=== PATIENT | male | born 1940 | race Caucasian/White ===

== ENCOUNTER 2017-08-07 07:12 | Inpatient (IN) | payer OTHER ==
[2017-08-07] MEDS ORDERED: SODIUM CHLORIDE 1,000 ML IV ONE (08:39)
[2017-08-07] MEDS ORDERED: morphine CARPU-JECT 4 MG/1 ML DISP.SYRIN IVPUSH ONE (08:39)
[2017-08-07] MEDS ORDERED: ONDANSETRON 4 MG/2 ML VIAL IVPUSH ONE ×2 (08:39→11:11)
[2017-08-07] MEDS ORDERED: ONDANSETRON 4 MG/2 ML VIAL ONE ×2 (08:57→11:12)
[2017-08-07] MEDS ORDERED: MORPHINE SULFATE 10 MG/1 ML *VIAL ONE (08:57)
[2017-08-07 09:10] LABS: BASO % 0.3 % (0-2.0); EOS % 0.2 % (0-4.5); HEMATOCRIT 43.2 % (35.4-49); HEMOGLOBIN 14.5 GM/dL (11.7-16.9); LYMPH % 12.1 % (8-40); MCH 30.6 pg (25.7-33.7); MCHC 33.6 g/dl (32.0-35.9); MEAN CELL VOLUME 91.1 fl (80-96); MEAN PLT VOLUME 7.3 fl (7.5-11.1); MONO % 6.1 % (3.8-10.2); NEUT % 81.3 % (42.8-82.8); PLATELET COUNT 315 K/MM3 (134-434); RBC 4.74 M/mm3 (4.00-5.60); RDW 13.7 % (11.9-15.9); WHITE BLOOD COUNT 16.1 K/mm3 (4.0-10.0)
[2017-08-07 09:24] LABS: INR 1.37 (0.82-1.09); PROTHROMBIN TIME (PATIENT) 15.5 SEC (9.98-11.88)
[2017-08-07 09:32] LABS: ALBUMIN 1.8 g/dl (3.4-5.0); ANION GAP 12 (8-16); BILIRUBIN,DIRECT 0.7 mg/dL (0.0-0.2); BILIRUBIN,TOTAL 1.1 mg/dL (0.2-1.0); BLOOD UREA NITROGEN 31 mg/dL (7-18); CALCIUM 8.4 mg/dL (8.5-10.1); CHLORIDE 103 mmol/L (98-107); CO2 28 mmol/L (21-32); CREATININE 1.4 mg/dL (0.7-1.3); GLUCOSE,RANDOM 129 mg/dL (74-106); LIPASE 198 U/L (73-393); MAGNESIUM 2.1 mg/dL (1.8-2.4); POTASSIUM 4.4 mmol/L (3.5-5.1); SGOT/AST 87 U/L (15-37); SGPT/ALT 59 U/L (12-78); SODIUM 143 mmol/L (136-145); TOT PROT 8.1 g/dl (6.4-8.2)
[2017-08-07 09:33] LABS: ALK PHOS 235 U/L (45-117)
--- NOTE | 2017-08-07 10:33 | PDOC ---
History of Present Illness <Robinson Nick - Last Filed: 08/07/17 12:04> - General History Source: Patient Exam Limitations: No Limitations - History of Present Illness Initial Comments: 08/07/17 10:33 The patient is a 77 year old male, with no known significant past medical history, who presents to the emergency department with abdominal pain for approximately 5 days. The patient reports his pain was initially localized to the left upper and mid abdomen, and has since become diffuse. He describes his pain as a dull/intermittent ache, and rates it a 9.5/10. Patient reports his symptoms typically come for an hour and resolve for approximately 30 minutes, however over the past 2 days his symptoms have been coming on more frequently. He endorses one episode of dark vomiting 4 days ago. He reports he has not had a bowel movement in 3 days. He denies any associated nausea, diarrhea, melena, or hematochezia. He endorses decreased appetite, and chills, but denies any recent fever, cough, headache, or dizziness. He denies any dysuria, hematuria, frequency, or urgency. He denies any chest pain, shortness of breath, diaphoresis, or palpitations. He denies any recent travel or sick contacts. He denies any abdominal surgeries. Allergies: NKDA Past Surgical History: None reported Social History: Non smoker. No ETOH or recreational drug use. <Vivi Babb - Last Filed: 08/07/17 12:39> - General Chief Complaint: Pain, Acute Stated Complaint: ABDOMINAL PAIN Time Seen by Provider: 08/07/17 07:28 Past History - Past Medical History COPD: No - Suicide/Smoking/Psychosocial Hx Smoking History: Former smoker Have you smoked in the past 12 months: No Information on smoking cessation initiated: No Hx Alcohol Use: No Drug/Substance Use Hx: No Substance Use Type: None <Robinson Nick - Last Filed: 08/07/17 12:04> <Vivi Babb - Last Filed: 08/07/17 12:39> - Past Medical History Allergies/Adverse Reactions: Allergies Allergy/AdvReac Type Severity Reaction Status Date / Time No Known Allergies Allergy Verified 08/07/17 07:28 Home Medications: Ambulatory Orders NK [No Known Home Medication] 08/07/17 Review of Systems - Review of Systems Constitutional: Yes: Chills, Night Sweats. No: Fever Respiratory: No: Cough, Shortness of Breath Cardiac (ROS): No: Chest Pain ABD/GI: Yes: See HPI, Constipated, Nausea, Vomiting : No: Dysuria All Other Systems: Reviewed and Negative <Robinson Nick - Last Filed: 08/07/17 12:04> *Physical Exam - Vital Signs Last Vital Signs Temp Pulse Resp BP Pulse Ox 98.4 F 86 16 146/83 96 08/07/17 07:19 08/07/17 08:49 08/07/17 08:49 08/07/17 08:49 08/07/17 08:49 <Robinson Nick - Last Filed: 08/07/17 12:04> - Vital Signs Last Vital Signs Temp Pulse Resp BP Pulse Ox 98.4 F 86 16 146/83 96 08/07/17 07:19 08/07/17 08:49 08/07/17 08:49 08/07/17 08:49 08/07/17 08:49 - Physical Exam Comments: 08/07/17 10:34 GENERAL: The patient is awake, alert, and fully oriented, in no acute distress. Obese. HEAD: Normal with no signs of trauma. EYES: Pupils equal, round and reactive to light, extraocular movements intact, sclera anicteric, conjunctiva clear with no pallor. ENT: Dry mucous membranes. Ears normal, nares patent, oropharynx clear without exudates. NECK: Normal range of motion, supple without lymphadenopathy, JVD, or masses. LUNGS: Breath sounds equal, clear to auscultation bilaterally. No wheeze/ crackles. HEART: Regular rate and rhythm, normal S1 and S2 without murmur or rub. ABDOMEN: Tenderness to the left mid and lower quadrant, with some guarding but no rebound. Soft/nondistended. BS wnl. No palpable masses. No hepatosplenomegaly. EXTREMITIES: Normal range of motion, no edema. No clubbing or cyanosis. No cords, erythema, or tenderness. NEUROLOGICAL: Cranial nerves II through XII grossly intact. Normal speech, normal gait. PSYCH: Normal mood, normal affect. SKIN: Warm, Dry, normal turgor, no rashes or lesions noted. <Babb,Giomilsy - Last Filed: 08/07/17 12:39> Heart Score/ECG Review #1 ECG reviewed & interpreted by me at: 06:25 General ECG Interpretation: Sinus Rhythm (arrythmia and PAC), Normal Rate (96), Normal Intervals (qtc 515, QRS 138), No acute ischemic changes (LVH, TWI I/AVL) Compared to previous ECG there are: Previous ECG unavail <Robinson Nick - Last Filed: 08/07/17 12:04> ED Treatment Course - LABORATORY CBC & Chemistry Diagram: 08/07/17 08:50 08/07/17 08:50 - ADDITIONAL ORDERS Additional order review: Laboratory Results 08/07/17 08/07/17 08/07/17 08:50 08:50 08:49 PT with INR 15.50 H INR 1.37 H Sodium 143 Potassium 4.4 Chloride 103 Carbon Dioxide 28 Anion Gap 12 BUN 31 H Creatinine 1.4 H Creat Clearance w eGFR 49.41 POC Glucometer Random Glucose 129 H Lactic Acid Calcium 8.4 L Magnesium 2.1 Total Bilirubin 1.1 H Direct Bilirubin 0.7 H AST 87 H ALT 59 Alkaline Phosphatase 235 H Creatine Kinase 19 L Troponin I < 0.02 Total Protein 8.1 Albumin 1.8 L Lipase 198 Blood Type O POSITIVE Antibody Screen Negative 08/07/17 08/07/17 08:49 07:47 PT with INR INR Sodium Potassium Chloride Carbon Dioxide Anion Gap BUN Creatinine Creat Clearance w eGFR POC Glucometer 158.74182 Random Glucose Lactic Acid 1.3 Calcium Magnesium Total Bilirubin Direct Bilirubin AST ALT Alkaline Phosphatase Creatine Kinase Troponin I Total Protein Albumin Lipase Blood Type Antibody Screen 08/07/17 08/07/17 08:50 07:47 RBC 4.74 MCV 91.1 MCHC 33.6 RDW 13.7 MPV 7.3 L Neutrophils % 81.3 Lymphocytes % 12.1 Monocytes % 6.1 Eosinophils % 0.2 Basophils % 0.3 POC Glucometer 158.55153 - RADIOLOGY Radiology Studies Ordered: Category Date Time Status ABDOMEN & PELVIS CT W/O CONTR [CT] Stat CT Scan 08/07/17 10:26 Ordered ABDOMEN-KUB FLAT PLATE [RAD] Stat Radiology 08/07/17 08:42 Ordered CHEST X-RAY PORTABLE* [RAD] Stat Radiology 08/07/17 08:42 Completed - Medications Given in the ED: ED Medications Discontinued Medications Generic Name Dose Route Start Last Admin Trade Name Rina PRN Reason Stop Dose Admin Sodium Chloride 1,000 mls @ 1,000 mls/hr 08/07/17 08:39 08/07/17 09:02 Normal Saline - IV 08/07/17 09:38 1,000 mls/hr ONCE ONE Administration Morphine Sulfate 4 mg 08/07/17 08:39 08/07/17 09:02 Morphine Injection - IVPUSH 08/07/17 08:40 4 mg ONCE ONE Administration Ondansetron HCl 4 mg 08/07/17 08:39 08/07/17 09:02 Zofran Injection IVPUSH 08/07/17 08:40 4 mg ONCE ONE Administration <Robinson Nick - Last Filed: 08/07/17 12:04> - LABORATORY CBC & Chemistry Diagram: 08/07/17 08:50 08/07/17 08:50 - ADDITIONAL ORDERS Additional order review: Laboratory Results 08/07/17 08/07/17 08/07/17 08:50 08:50 08:49 PT with INR 15.50 H INR 1.37 H Sodium 143 Potassium 4.4 Chloride 103 Carbon Dioxide 28 Anion Gap 12 BUN 31 H Creatinine 1.4 H Creat Clearance w eGFR 49.41 POC Glucometer Random Glucose 129 H Lactic Acid Calcium 8.4 L Magnesium 2.1 Total Bilirubin 1.1 H Direct Bilirubin 0.7 H AST 87 H ALT 59 Alkaline Phosphatase 235 H Creatine Kinase 19 L Troponin I < 0.02 Total Protein 8.1 Albumin 1.8 L Lipase 198 Blood Type O POSITIVE Antibody Screen Negative 08/07/17 08/07/17 08:49 07:47 PT with INR INR Sodium Potassium Chloride Carbon Dioxide Anion Gap BUN Creatinine Creat Clearance w eGFR POC Glucometer 158.44696 Random Glucose Lactic Acid 1.3 Calcium Magnesium Total Bilirubin Direct Bilirubin AST ALT Alkaline Phosphatase Creatine Kinase Troponin I Total Protein Albumin Lipase Blood Type Antibody Screen 08/07/17 08/07/17 08:50 07:47 RBC 4.74 MCV 91.1 MCHC 33.6 RDW 13.7 MPV 7.3 L Neutrophils % 81.3 Lymphocytes % 12.1 Monocytes % 6.1 Eosinophils % 0.2 Basophils % 0.3 POC Glucometer 158.08325 - Medications Given in the ED: ED Medications Discontinued Medications Generic Name Dose Route Start Last Admin Trade Name Rina PRN Reason Stop Dose Admin Sodium Chloride 1,000 mls @ 1,000 mls/hr 08/07/17 08:39 08/07/17 09:02 Normal Saline - IV 08/07/17 09:38 1,000 mls/hr ONCE ONE Administration Morphine Sulfate 4 mg 08/07/17 08:39 08/07/17 09:02 Morphine Injection - IVPUSH 08/07/17 08:40 4 mg ONCE ONE Administration Ondansetron HCl 4 mg 08/07/17 08:39 08/07/17 09:02 Zofran Injection IVPUSH 08/07/17 08:40 4 mg ONCE ONE Administration <Vivi Babb - Last Filed: 08/07/17 12:39> Medical Decision Making - Medical Decision Making 08/07/17 10:30 A portion of this note was documented by scribe services under my direction. I have reviewed the details of the note, within reason, and agree with the documentation with the following case summary and management plan written by me. 77-year-old male who does not have primary care follow-up, no surgical or medical history presents with 5 days of progressive left-sided abdominal pain associated with vomiting on day 2, constipation for 3 days. No blood per rectum , chills night sweats, presents for evaluation. Afebrile. Slight tachycardia Dry mucosa, no jaundice or pallor Obese, abdomen is soft and nondistended. Tender with some guarding in the left mid and left lower quadrant 77-year-old male with progressive abdominal pain for 5 days, subjective fevers and chills with localizing findings in the left lower quadrant. Presentation could be most consistent with diverticulitis/colitis, rule out obstruction/ ileus. Less likely etiology or vascular etiology. Labs, urinalysis Pain control, nausea control IV fluids CT of the abdomen and pelvis Reassess 08/07/17 10:32 Labs notable for white count of 16, creatinine 1.4, normal LFTs, lipase, troponin. CAT scan without contrast, pain improved after morphine. 08/07/17 11:37 CTAP notable for large cystic structure in L love of liver concerning for neoplasm, compression of stomach but no obstruction or diverticulitis. Pt given 2nd dose of zofran and feels better. Aware of findings, agrees with admission given pain/inability to tolerate PO. Dr. Josue, health services information specialist, contacted. 08/07/17 12:04 Dr. Josue accepts for inpatient med/surg. <Robinson Nick - Last Filed: 08/07/17 12:04> - Medical Decision Making 08/07/17 11:33 First call placed to Dr. Josue at 11:28. Awaiting call back. Second call placed to Dr. Josue at 11:57. Awaiting call back. Case discussed with Dr. Josue at 12:03. <Vivi Babb - Last Filed: 08/07/17 12:39> *DC/Admit/Observation/Transfer - Discharge Dispostion Admit: Yes <Robinson Nick - Last Filed: 08/07/17 12:04> - Attestations Scribe Attestion: 08/07/17 10:36 Documentation prepared by Vivi Babb, acting as medical technicians for Robinson Nick MD. <Vivi Babb - Last Filed: 08/07/17 12:39> Diagnosis at time of Disposition: Abdominal pain, left lower quadrant, Liver mass - Discharge Dispostion Condition at time of disposition: Fair
[2017-08-07 15:32] VITALS: BMI 35.4
--- NOTE | 2017-08-07 16:00 | EKG ---
Test Reason : Blood Pressure : / mmHG Vent. Rate : 096 BPM Atrial Rate : 096 BPM P-R Int : 168 ms QRS Dur : 138 ms QT Int : 408 ms P-R-T Axes : 021 -59 102 degrees QTc Int : 515 ms SINUS RHYTHM WITH MARKED SINUS ARRHYTHMIA LEFT AXIS DEVIATION LEFT VENTRICULAR HYPERTROPHY WITH QRS WIDENING AND REPOLARIZATION ABNORMALITY ABNORMAL ECG NO PREVIOUS ECGS AVAILABLE Confirmed by LAKEISHA CUTLER MD ([id number]) on 08/07/2017 4:00:21 PM Referred By: Confirmed By:LAKEISHA CUTLER MD
[2017-08-07] MEDS ORDERED: HYDROmorphone HCL CARPU-JECT 1 MG/1 ML DISP.SYRIN IVPB PRN (18:14)
--- NOTE | 2017-08-07 18:14 | HP ---
Admitting History and Physical - Primary Care Physician PCP: Kristina Josue - Admission Chief Complaint: abdominal pain History of Present Illness: 77 year old male, with no known significant past medical history, who presents to the emergency department with abdominal pain for approximately 5 days. The patient reports his pain was initially localized to the left upper and mid abdomen, and has since become diffuse. He describes his pain as a dull/ intermittent ache, and rates it a 9.5/10. Patient reports his symptoms typically come for an hour and resolve for approximately 30 minutes, however over the past 2 days his symptoms have been coming on more frequently. He endorses one episode of dark vomiting 4 days ago. He reports he has not had a bowel movement in 3 days. He denies any associated nausea, diarrhea, melena, or hematochezia. He endorses decreased appetite, and chills, but denies any recent fever, cough, headache, or dizziness. He denies any dysuria, hematuria, frequency, or urgency. He denies any chest pain, shortness of breath, diaphoresis, or palpitations. He denies any recent travel or sick contacts. He denies any abdominal surgeries. - Smoking History Smoking history: Former smoker Have you smoked in the past 12 months: No - Alcohol/Substance Use Hx Alcohol Use: No Home Medications - Allergies Allergies/Adverse Reactions: Allergies Allergy/AdvReac Type Severity Reaction Status Date / Time No Known Allergies Allergy Verified 08/07/17 07:28 - Home Medications Home Medications: Ambulatory Orders NK [No Known Home Medication] 08/07/17 Physical Examination Vital Signs: Vital Signs Temperature 98 F 08/07/17 16:26 Pulse Rate 94 H 08/07/17 16:26 Respiratory Rate 18 08/07/17 16:26 Blood Pressure 138/92 08/07/17 16:26 O2 Sat by Pulse Oximetry (%) 95 08/07/17 13:04 Constitutional: Yes: No Distress HENT: Yes: Atraumatic Neck: Yes: Supple Cardiovascular: Yes: Regular Rate and Rhythm Respiratory: Yes: CTA Bilaterally Gastrointestinal: Yes: Normal Bowel Sounds, Tenderness (mild ruq) Extremities: Yes: WNL Edema: No Neurological: Yes: Alert, Oriented Labs: CBC, BMP 08/07/17 08:50 08/07/17 08:50 Problem List - Problems (1) Abdominal pain, left lower quadrant Assessment/Plan: prn pain meds npo ct scan abd /pelvis gi and surgery consult Code(s): R10.32 - LEFT LOWER QUADRANT PAIN (2) Liver mass Assessment/Plan: surgery is involved also oncology consult Code(s): R16.0 - HEPATOMEGALY, NOT ELSEWHERE CLASSIFIED (3) Mass of left lobe of liver Code(s): R16.0 - HEPATOMEGALY, NOT ELSEWHERE CLASSIFIED Assessment/Plan Laboratory Tests 08/07/17 08/07/17 08/07/17 07:47 08:49 08:49 WBC RBC Hgb Hct MCV MCH MCHC RDW Plt Count MPV Neutrophils % Lymphocytes % Monocytes % Eosinophils % Basophils % PT with INR INR Sodium Potassium Chloride Carbon Dioxide Anion Gap BUN Creatinine Creat Clearance w eGFR POC Glucometer 158.09303 Random Glucose Lactic Acid 1.3 Calcium Magnesium Total Bilirubin Direct Bilirubin AST ALT Alkaline Phosphatase Creatine Kinase Troponin I Total Protein Albumin Lipase Blood Type O POSITIVE Antibody Screen Negative 08/07/17 08/07/17 08/07/17 08:50 08:50 08:50 WBC 16.1 H RBC 4.74 Hgb 14.5 Hct 43.2 MCV 91.1 MCH 30.6 MCHC 33.6 RDW 13.7 Plt Count 315 MPV 7.3 L Neutrophils % 81.3 Lymphocytes % 12.1 Monocytes % 6.1 Eosinophils % 0.2 Basophils % 0.3 PT with INR 15.50 H INR 1.37 H Sodium 143 Potassium 4.4 Chloride 103 Carbon Dioxide 28 Anion Gap 12 BUN 31 H Creatinine 1.4 H Creat Clearance w eGFR 49.41 POC Glucometer Random Glucose 129 H Lactic Acid Calcium 8.4 L Magnesium 2.1 Total Bilirubin 1.1 H Direct Bilirubin 0.7 H AST 87 H ALT 59 Alkaline Phosphatase 235 H Creatine Kinase 19 L Troponin I < 0.02 Total Protein 8.1 Albumin 1.8 L Lipase 198 Blood Type Antibody Screen Active Medications Generic Name Dose Route Start Last Admin Trade Name Freq PRN Reason Stop Dose Admin Heparin Sodium (Porcine) 5,000 unit 08/07/17 22:00 08/08/17 09:35 Heparin - SQ 5,000 unit BID ROSITA Administration Hydromorphone HCl 1 mg 08/07/17 18:14 Dilaudid Injection - IVPB Q3H PRN PAIN Sodium Chloride 1,000 mls @ 100 mls/hr 08/07/17 18:15 08/08/17 17:59 Normal Saline - IV Not Given ASDIR ROSITA
[2017-08-07] MEDS: SODIUM CHLORIDE 1,000 ML IV SCH (18:46)
[2017-08-07] MEDS: HEPARIN NA (PORCINE) 5,000 UNITS/ML 1ML VIAL SQ SCH (21:20)
--- NOTE | 2017-08-07 22:54 | CONSULT ---
Consult - text type - Consultation Consultation Note: The patient is a 77 year old male, with no known significant past medical history, who presents to the emergency department with abdominal pain for approximately 5 days. The patient reports his pain was initially localized to the left upper and mid abdomen, and has since become diffuse. He describes his pain as a dull/intermittent ache, and rates it a 9.5/10. Patient reports his symptoms typically come for an hour and resolve for approximately 30 minutes, however over the past 2 days his symptoms have been coming on more frequently. He endorses one episode of dark vomiting 4 days ago. He reports he has not had a bowel movement in 3 days. He denies any associated nausea, diarrhea, melena, or hematochezia. He endorses decreased appetite, and chills, but denies any recent fever, cough, headache, or dizziness. He denies any dysuria, hematuria, frequency, or urgency. He denies any chest pain, shortness of breath, diaphoresis, or palpitations. He denies any recent travel or sick contacts. He denies any abdominal surgeries. Allergies: NKDA Past Surgical History: None reported Social History: Non smoker. No ETOH or recreational drug use. family h/o mother had breast cancer in her 50s father had lung cancer - Suicide/Smoking/Psychosocial Hx Smoking History: Former smoker Allergies/Adverse Reactions: Allergies Allergy/AdvReac Type Severity Reaction Status Date / Time No Known Allergies Allergy Verified 08/07/17 07:28 Home Medications: Ambulatory Orders NK [No Known Home Medication] 08/07/17 *Physical Exam - Vital Signs Last Vital Signs Temp Pulse Resp BP Pulse Ox 98.4 F 86 16 146/83 96 08/07/17 07:19 08/07/17 08:49 08/07/17 08:49 08/07/17 08:49 08/07/17 08:49 GENERAL: The patient is awake, alert, and fully oriented, in no acute distress. Obese. HEAD: Normal with no signs of trauma.. NECK: Normal range of motion, supple without lymphadenopathy, JVD, or masses. LUNGS: Breath sounds equal, clear to auscultation bilaterally. No wheeze/ crackles. HEART: Regular rate and rhythm, normal S1 and S2 without murmur or rub. ABDOMEN: Tenderness to the left mid and lower quadrant, with some guarding but no rebound. Soft/nondistended. BS wnl. No palpable masses. No hepatosplenomegaly. EXTREMITIES: Normal range of motion, no edema. No clubbing or cyanosis. No cords, erythema, or tenderness. Abnormal Lab Results 08/07/17 08/07/17 08/07/17 08:50 08:50 08:50 WBC 16.1 H MPV 7.3 L PT with INR 15.50 H INR 1.37 H BUN 31 H Creatinine 1.4 H Random Glucose 129 H Calcium 8.4 L Total Bilirubin 1.1 H Direct Bilirubin 0.7 H AST 87 H Alkaline Phosphatase 235 H Creatine Kinase 19 L Albumin 1.8 L a/p 77-year-old male who does not have primary care follow-up, no surgical or medical history presents with 5 days of progressive left-sided abdominal pain associated with vomiting on day 2, constipation for 3 days. No bleedeing per rectum, chills night sweats, Labs notable for white count of 16, creatinine 1.4, normal LFTs, lipase, troponin. CTAP notable for large cystic structure 21x 15cm in L lobe of liver concerning for neoplasm, compression of stomach but no obstruction or diverticulitis' Patient never had colonoscopy and denies h/o liver disease, alcohol abuse will checl Pt/Ptt/fibrnogen ast doseof aleve 3 days back will request gi consult--mri/mrcp per hepatic protocol ---? cr 1.4 check tunor markers--afp, cea, ca 19.9 willneed biopsy via ir based on above w/u
[2017-08-08] MEDS: SODIUM CHLORIDE 1,000 ML IV SCH ×3 (05:15→18:51)
--- NOTE | 2017-08-08 09:20 | CON.GI ---
Consult Consult Specialty:: GI Reason for Consultation:: Abnormal CT of the abdomen - History of Present Illness History of Present Illness: chart reviewed. As per initial intake: no known significant past medical history, who presents to the emergency department with abdominal pain for approximately 5 days. The patient reports his pain was initially localized to the left upper and mid abdomen, and has since become diffuse. He describes his pain as a dull/ intermittent ache, and rates it a 9.5/10. Patient reports his symptoms typically come for an hour and resolve for approximately 30 minutes, however over the past 2 days his symptoms have been coming on more frequently. He endorses one episode of dark vomiting 4 days ago. He reports he has not had a bowel movement in 3 days. He denies any associated nausea, diarrhea, melena, or hematochezia. He endorses decreased appetite, and chills, but denies any recent fever, cough, headache, or dizziness. He denies any dysuria, hematuria, frequency, or urgency. He denies any chest pain, shortness of breath, diaphoresis, or palpitations. He denies any recent travel or sick contacts. He denies any abdominal surgeries. At the time of this encountered, the patient appears comfortable. Not in distress. Reports no ongoing GI symptoms. Denies chronic alcohol use, history of viral hepatitis, exposures to chemicals, family history of viral hepatitis, autoimmune, genetic, or metabolic liver problems. Never been told he had liver problems in the past. Reports subjective weight loss. Denies jaundice, low-grade fever, chills, altered bowel habits, melena, hematochezia, hematemesis. On admission, he was found to have large, complex liver mass On CT abdomen and pelvis without contrast. Hematology oncology was consulted. Blood work ordered. - History Source History Provided By: Patient, Medical Record - Alcohol/Substance Use Hx Alcohol Use: No - Smoking History Smoking history: Former smoker Have you smoked in the past 12 months: No Home Medications - Allergies Allergies/Adverse Reactions: Allergies Allergy/AdvReac Type Severity Reaction Status Date / Time No Known Allergies Allergy Verified 08/07/17 07:28 - Home Medications Home Medications: Ambulatory Orders NK [No Known Home Medication] 08/07/17 Family Disease History - Family Disease History Family History: Unremarkable Review of Systems Findings/Remarks: Please refer to HPI and H&P. Physical Exam-GI Vital Signs: Vital Signs Temperature 98.7 F 08/08/17 05:38 Pulse Rate 109 H 08/08/17 05:38 Respiratory Rate 20 08/08/17 05:38 Blood Pressure 128/79 08/08/17 05:38 O2 Sat by Pulse Oximetry (%) 96 08/07/17 22:00 Constitutional: Yes: Well Nourished, No Distress, Calm Eyes: Yes: Conjunctiva Clear HENT: Yes: Atraumatic Neck: Yes: Supple Cardiovascular: Yes: Regular Rate and Rhythm Respiratory: Yes: Regular Neurological: Yes: Alert, Oriented Labs: CBC, BMP 08/07/17 08:50 08/07/17 08:50 INR, PTT INR 1.37 (0.82-1.09) H 08/07/17 08:50 Laboratory Tests 08/07/17 08/07/17 08/07/17 07:47 08:49 08:49 WBC RBC Hgb Hct MCV MCH MCHC RDW Plt Count MPV Neutrophils % Lymphocytes % Monocytes % Eosinophils % Basophils % PT with INR INR Sodium Potassium Chloride Carbon Dioxide Anion Gap BUN Creatinine Creat Clearance w eGFR POC Glucometer 158.06836 Random Glucose Lactic Acid 1.3 Calcium Magnesium Total Bilirubin Direct Bilirubin AST ALT Alkaline Phosphatase Creatine Kinase Troponin I Total Protein Albumin Lipase Blood Type O POSITIVE Antibody Screen Negative 08/07/17 08/07/17 08/07/17 08:50 08:50 08:50 WBC 16.1 H RBC 4.74 Hgb 14.5 Hct 43.2 MCV 91.1 MCH 30.6 MCHC 33.6 RDW 13.7 Plt Count 315 MPV 7.3 L Neutrophils % 81.3 Lymphocytes % 12.1 Monocytes % 6.1 Eosinophils % 0.2 Basophils % 0.3 PT with INR 15.50 H INR 1.37 H Sodium 143 Potassium 4.4 Chloride 103 Carbon Dioxide 28 Anion Gap 12 BUN 31 H Creatinine 1.4 H Creat Clearance w eGFR 49.41 POC Glucometer Random Glucose 129 H Lactic Acid Calcium 8.4 L Magnesium 2.1 Total Bilirubin 1.1 H Direct Bilirubin 0.7 H AST 87 H ALT 59 Alkaline Phosphatase 235 H Creatine Kinase 19 L Troponin I < 0.02 Total Protein 8.1 Albumin 1.8 L Lipase 198 Blood Type Antibody Screen Imaging - Results Cat Scan: Report Reviewed ( CT abdomen and pelvis without contrast) Problem List - Problems (1) Abdominal pain, left lower quadrant Code(s): R10.32 - LEFT LOWER QUADRANT PAIN (2) Liver mass Code(s): R16.0 - HEPATOMEGALY, NOT ELSEWHERE CLASSIFIED Assessment/Plan Rule out primary, or metastatic liver disease. Agree with alpha-fetoprotein, CA-19-9, CEA. CT abdomen, pelvis, chest with IV/po contrast, or MR with contrast may be helpful in assessing the liver lesion and the extent, If renal function allow after adequate hydration. alternatively, if the above blood work results are inconclusive, a liver biopsy can be undertaken. EGD and colonoscopy to assess for gastric and colon primary ay be warranted depending on the outcome the above studies. will follow.
[2017-08-08] MEDS: HEPARIN NA (PORCINE) 5,000 UNITS/ML 1ML VIAL SQ SCH ×2 (09:35→22:08)
--- NOTE | 2017-08-08 10:59 | CONSULT ---
Consult Consult Specialty:: Surgery Referred by:: Dr. Josue Reason for Consultation:: Abdominal mass. - History of Present Illness Chief Complaint: 77 year old man is admitted with c/o inability to eat , loss of appetite for the past 5 weeks. He came to the Er because he had abdominal pain , across his midabdomen. He denies any rectal bleeding, change in bowel habits. - History Source History Provided By: Patient (He denies any medical or surgical history. He does not know of any primary doctor, and refers to his .), Family Member - Past Surgical History Past Surgical History: Yes: None - Alcohol/Substance Use Hx Alcohol Use: No - Smoking History Smoking history: Former smoker Have you smoked in the past 12 months: No Home Medications - Allergies Allergies/Adverse Reactions: Allergies Allergy/AdvReac Type Severity Reaction Status Date / Time No Known Allergies Allergy Verified 08/07/17 07:28 - Home Medications Home Medications: Ambulatory Orders NK [No Known Home Medication] 08/07/17 Review of Systems - Review of Systems Constitutional: reports: No Symptoms, Unintentional Wgt. Loss Eyes: reports: No Symptoms HENT: reports: No Symptoms Neck: reports: No Symptoms Cardiovascular: reports: No Symptoms Respiratory: reports: No Symptoms Gastrointestinal: reports: No Symptoms, Abdominal Pain Genitourinary: reports: No Symptoms Breasts: reports: No Symptoms Reported Musculoskeletal: reports: No Symptoms Physical Exam Vital Signs: Vital Signs Temperature 98.7 F 08/08/17 05:38 Pulse Rate 109 H 08/08/17 05:38 Respiratory Rate 20 08/08/17 05:38 Blood Pressure 128/79 08/08/17 05:38 O2 Sat by Pulse Oximetry (%) 96 08/07/17 22:00 Labs: CBC, BMP 08/07/17 08:50 08/07/17 08:50 Imaging - Results Cat Scan: Report Reviewed, Image Reviewed (Lobulated mass in left lobe of liverv , with ? compression of vstomach. This was done without contrast.) Problem List - Problems (1) Mass of left lobe of liver Code(s): R16.0 - HEPATOMEGALY, NOT ELSEWHERE CLASSIFIED (2) Abdominal pain Code(s): R10.9 - UNSPECIFIED ABDOMINAL PAIN Qualifiers: Abdominal location: left lower quadrant Qualified Code(s): R10.32 - Left lower quadrant pain (3) Abdominal pain, left lower quadrant Code(s): R10.32 - LEFT LOWER QUADRANT PAIN (4) Loss of appetite Code(s): R63.0 - ANOREXIA (5) Dysphagia Code(s): R13.10 - DYSPHAGIA, UNSPECIFIED Qualifiers: Dysphagia type: unspecified Qualified Code(s): R13.10 - Dysphagia, unspecified Assessment/Plan ? Liver mass , ? primary , ? secondary. Dysphagia, with loss of appetite, consider upper and lower endoscopy, Ct scan of abdomen and pelvis with oral and IV contrast, I have discussed with radiologist. Tumor markers, CEA. Will follow.
[2017-08-08 12:27] LABS: ANION GAP 10 (8-16); BLOOD UREA NITROGEN 27 mg/dL (7-18); CALCIUM 7.6 mg/dL (8.5-10.1); CHLORIDE 109 mmol/L (98-107); CO2 25 mmol/L (21-32); CREATININE 1.2 mg/dL (0.7-1.3); GLUCOSE,RANDOM 96 mg/dL (74-106); POTASSIUM 4.2 mmol/L (3.5-5.1); SODIUM 144 mmol/L (136-145)
--- NOTE | 2017-08-08 13:37 | PN ---
Progress Note (short form) - Note Progress Note: pt seen and examined family at bedside. all consult notes reviewed witnessed pt vomiting the PO contrast that he is trying to drink. ROS is limited due to pts condition at the time of the visit. O/E: Last Vital Signs Temp Pulse Resp BP Pulse Ox 98.2 F 98 H 20 130/77 96 08/08/17 08:00 08/08/17 08:00 08/08/17 08:00 08/08/17 08:00 08/08/17 08:00 CBC, BMP 08/07/17 08:50 08/08/17 11:45 Current Medications Generic Name Dose Route Start Last Admin Trade Name Freq PRN Reason Stop Dose Admin Heparin Sodium (Porcine) 5,000 unit 08/07/17 22:00 08/08/17 09:35 Heparin - SQ 5,000 unit BID ROSITA Administration Hydromorphone HCl 1 mg 08/07/17 18:14 Dilaudid Injection - IVPB Q3H PRN PAIN Sodium Chloride 1,000 mls @ 100 mls/hr 08/07/17 18:15 08/08/17 05:15 Normal Saline - IV 100 mls/hr ASDIR ROSITA Administration will f.u on tumor markers/imaging studies for the CT non-con image finding of a liver mass. Could not tolerate PO contrast, changed to IV contrast only eventually will need a pathological diagnosis reviewed GI/Surgery recs
--- NOTE | 2017-08-08 18:08 | PN ---
Progress Note, Physician - Current Medication List Current Medications: Active Medications Heparin Sodium (Porcine) (Heparin -) 5,000 unit SQ BID [facility] Last Admin: 08/08/17 09:35 Dose: 5,000 unit Hydromorphone HCl (Dilaudid Injection -) 1 mg IVPB Q3H PRN PRN Reason: PAIN Sodium Chloride (Normal Saline -) 1,000 mls @ 100 mls/hr IV ASDIR [facility] Last Admin: 08/08/17 17:59 Dose: Not Given - Objective Vital Signs: Vital Signs Temperature 98.2 F 08/08/17 08:00 Pulse Rate 98 H 08/08/17 08:00 Respiratory Rate 20 08/08/17 08:00 Blood Pressure 130/77 08/08/17 08:00 O2 Sat by Pulse Oximetry (%) 96 08/08/17 08:00 Constitutional: Yes: No Distress HENT: Yes: Atraumatic Neck: Yes: Supple Cardiovascular: Yes: Regular Rate and Rhythm Respiratory: Yes: CTA Bilaterally Gastrointestinal: Yes: Normal Bowel Sounds Extremities: Yes: WNL Neurological: Yes: Alert, Oriented Labs: CBC, BMP 08/07/17 08:50 08/08/17 11:45 INR, PTT INR 1.37 (0.82-1.09) H 08/07/17 08:50 Problem List - Problems (1) Abdominal pain, left lower quadrant Assessment/Plan: prn pain meds npo ct scan abd /pelvis gi and surgery consult Code(s): R10.32 - LEFT LOWER QUADRANT PAIN (2) Liver mass Assessment/Plan: surgery is involved also oncology consult Code(s): R16.0 - HEPATOMEGALY, NOT ELSEWHERE CLASSIFIED (3) Abdominal pain Code(s): R10.9 - UNSPECIFIED ABDOMINAL PAIN Qualifiers: Abdominal location: left lower quadrant Qualified Code(s): R10.32 - Left lower quadrant pain (4) Mass of left lobe of liver Code(s): R16.0 - HEPATOMEGALY, NOT ELSEWHERE CLASSIFIED
[2017-08-09] MEDS: SODIUM CHLORIDE 1,000 ML IV SCH ×2 (03:58→16:31)
[2017-08-09 06:58] LABS: BASO % 0.3 % (0-2.0); EOS % 0.8 % (0-4.5); HEMATOCRIT 38.3 % (35.4-49); HEMOGLOBIN 12.9 GM/dL (11.7-16.9); LYMPH % 11.9 % (8-40); MCH 30.5 pg (25.7-33.7); MCHC 33.8 g/dl (32.0-35.9); MEAN CELL VOLUME 90.2 fl (80-96); MEAN PLT VOLUME 7.1 fl (7.5-11.1); MONO % 7.2 % (3.8-10.2); NEUT % 79.8 % (42.8-82.8); PLATELET COUNT 303 K/MM3 (134-434); RBC 4.25 M/mm3 (4.00-5.60); RDW 13.6 % (11.9-15.9); WHITE BLOOD COUNT 14.6 K/mm3 (4.0-10.0)
[2017-08-09 08:02] LABS: INR 1.39 (0.82-1.09); PROTHROMBIN TIME (PATIENT) 15.7 SEC (9.98-11.88)
[2017-08-09 08:04] LABS: ACTIVATED PTT 31.2 SECONDS (26.9-34.4)
--- NOTE | 2017-08-09 09:30 | PN ---
Progress Note, Physician History of Present Illness: chart reviewed. CT results noted. No events. - Current Medication List Current Medications: Active Medications Heparin Sodium (Porcine) (Heparin -) 5,000 unit SQ BID [facility] Last Admin: 08/08/17 22:08 Dose: 5,000 unit Hydromorphone HCl (Dilaudid Injection -) 1 mg IVPB Q3H PRN PRN Reason: PAIN Sodium Chloride (Normal Saline -) 1,000 mls @ 100 mls/hr IV ASDIR [facility] Last Admin: 08/09/17 03:58 Dose: 100 mls/hr - Objective Vital Signs: Vital Signs Temperature 99.0 F 08/09/17 05:47 Pulse Rate 107 H 08/09/17 05:47 Respiratory Rate 20 08/09/17 05:47 Blood Pressure 147/76 08/09/17 05:47 O2 Sat by Pulse Oximetry (%) 95 08/08/17 21:00 Constitutional: Yes: No Distress, Calm Gastrointestinal: Yes: Soft. No: Rectal Bleeding, Tenderness, Tenderness, Rebound, Vomiting Neurological: Yes: Alert Labs: CBC, BMP 08/09/17 06:25 08/08/17 11:45 INR, PTT INR 1.39 (0.82-1.09) H 08/09/17 06:25 Fibrinogen 598.0 mg/dL (238-498) H 08/09/17 06:25 CBCD WBC 14.6 K/mm3 (4.0-10.0) H 08/09/17 06:25 RBC 4.25 M/mm3 (4.00-5.60) 08/09/17 06:25 Hgb 12.9 GM/dL (11.7-16.9) D 08/09/17 06:25 Hct 38.3 % (35.4-49) 08/09/17 06:25 MCV 90.2 fl (80-96) 08/09/17 06:25 MCHC 33.8 g/dl (32.0-35.9) 08/09/17 06:25 RDW 13.6 % (11.9-15.9) 08/09/17 06:25 Plt Count 303 K/MM3 (134-434) 08/09/17 06:25 MPV 7.1 fl (7.5-11.1) L 08/09/17 06:25 CMP Sodium 144 mmol/L (136-145) 08/08/17 11:45 Potassium 4.2 mmol/L (3.5-5.1) 08/08/17 11:45 Chloride 109 mmol/L (98-107) H 08/08/17 11:45 Carbon Dioxide 25 mmol/L (21-32) 08/08/17 11:45 Anion Gap 10 (8-16) 08/08/17 11:45 BUN 27 mg/dL (7-18) H 08/08/17 11:45 Creatinine 1.2 mg/dL (0.7-1.3) 08/08/17 11:45 Creat Clearance w eGFR 49.41 (>60) 08/07/17 08:50 Calcium 7.6 mg/dL (8.5-10.1) L 08/08/17 11:45 Total Bilirubin 1.1 mg/dL (0.2-1.0) H 08/07/17 08:50 AST 87 U/L (15-37) H 08/07/17 08:50 ALT 59 U/L (12-78) 08/07/17 08:50 Alkaline Phosphatase 235 U/L (45-117) H 08/07/17 08:50 Total Protein 8.1 g/dl (6.4-8.2) 08/07/17 08:50 Albumin 1.8 g/dl (3.4-5.0) L 08/07/17 08:50 - ....Imaging Cat Scan: Report Reviewed Problem List - Problems (1) Abdominal pain, left lower quadrant Code(s): R10.32 - LEFT LOWER QUADRANT PAIN (2) Liver mass Code(s): R16.0 - HEPATOMEGALY, NOT ELSEWHERE CLASSIFIED Assessment/Plan CT results noted Rule out primary, or metastatic liver disease. tumor markers pending EGD+colonoscopy
--- NOTE | 2017-08-09 10:34 | PN ---
Progress Note, Physician - Current Medication List Current Medications: Active Medications Heparin Sodium (Porcine) (Heparin -) 5,000 unit SQ BID [facility] Last Admin: 08/08/17 22:08 Dose: 5,000 unit Hydromorphone HCl (Dilaudid Injection -) 1 mg IVPB Q3H PRN PRN Reason: PAIN Sodium Chloride (Normal Saline -) 1,000 mls @ 100 mls/hr IV ASDIR [facility] Last Admin: 08/09/17 03:58 Dose: 100 mls/hr - Objective Vital Signs: Vital Signs Temperature 99.0 F 08/09/17 05:47 Pulse Rate 107 H 08/09/17 05:47 Respiratory Rate 20 08/09/17 05:47 Blood Pressure 147/76 08/09/17 05:47 O2 Sat by Pulse Oximetry (%) 95 08/08/17 21:00 Labs: CBC, BMP 08/09/17 06:25 08/08/17 11:45 INR, PTT INR 1.39 (0.82-1.09) H 08/09/17 06:25 Fibrinogen 598.0 mg/dL (238-498) H 08/09/17 06:25 Problem List - Problems (1) Mass of left lobe of liver Code(s): R16.0 - HEPATOMEGALY, NOT ELSEWHERE CLASSIFIED (2) Abdominal pain Code(s): R10.9 - UNSPECIFIED ABDOMINAL PAIN Qualifiers: Abdominal location: left lower quadrant Qualified Code(s): R10.32 - Left lower quadrant pain (3) Abdominal pain, left lower quadrant Code(s): R10.32 - LEFT LOWER QUADRANT PAIN (4) Loss of appetite Code(s): R63.0 - ANOREXIA (5) Dysphagia Code(s): R13.10 - DYSPHAGIA, UNSPECIFIED Qualifiers: Dysphagia type: unspecified Qualified Code(s): R13.10 - Dysphagia, unspecified Assessment/Plan ? Liver mass , ? primary , ? secondary. Dysphagia, with loss of appetite, consider upper and lower endoscopy, Ct scan of abdomen and pelvis with oral and IV contrast, I have discussed with radiologist. Shows a cystic neoplasm in the left lobe of the liver , with ? a peritoneal implant. Possible secondary tumor in the liver. Agree with endoscopy for possible primary. If no primary tumor founs, will consider transfer to liver service at [facility] . BUN and creatinine has improved Still has leucosytosis. Tumor markers, CEA not ready Will follow.
[2017-08-09] MEDS: HEPARIN NA (PORCINE) 5,000 UNITS/ML 1ML VIAL SQ SCH ×2 (11:12→21:22)
[2017-08-09] MEDS ORDERED: morphine SULFATE 4 MG/ML VIAL IVPUSH PRN (11:46)
[2017-08-09] MEDS ORDERED: BISACODYL 5 MG TABLET.DR (FP) PO ONE (14:30)
--- NOTE | 2017-08-09 16:50 | PN ---
Progress Note, Physician - Current Medication List Current Medications: Active Medications Heparin Sodium (Porcine) (Heparin -) 5,000 unit SQ BID [facility] Last Admin: 08/09/17 11:12 Dose: 5,000 unit Sodium Chloride (Normal Saline -) 1,000 mls @ 100 mls/hr IV ASDIR ROSITA Last Admin: 08/09/17 16:31 Dose: 100 mls/hr Morphine Sulfate (Morphine Sulfate) 2 mg IVPUSH Q4H PRN PRN Reason: PAIN 4-6 Last Admin: 08/09/17 11:52 Dose: 2 mg Polyethylene Glycol/Electrolytes (Golytely Solution -) 4,000 ml PO ONCE ONE Stop: 08/09/17 17:01 - Objective Vital Signs: Vital Signs Temperature 97.6 F 08/09/17 14:30 Pulse Rate 89 08/09/17 14:30 Respiratory Rate 20 08/09/17 09:00 Blood Pressure 150/86 08/09/17 14:30 O2 Sat by Pulse Oximetry (%) 95 08/09/17 09:00 Constitutional: Yes: No Distress HENT: Yes: Atraumatic Neck: Yes: Supple Cardiovascular: Yes: Regular Rate and Rhythm Respiratory: Yes: CTA Bilaterally Gastrointestinal: Yes: Normal Bowel Sounds Extremities: Yes: WNL Edema: No Peripheral Pulses WNL: Yes Neurological: Yes: Alert, Oriented Labs: CBC, BMP 08/09/17 06:25 08/08/17 11:45 INR, PTT INR 1.39 (0.82-1.09) H 08/09/17 06:25 Fibrinogen 598.0 mg/dL (238-498) H 08/09/17 06:25 Problem List - Problems (1) Abdominal pain, left lower quadrant Assessment/Plan: prn pain meds npo ct scan abd /pelvis gi and surgery consult Code(s): R10.32 - LEFT LOWER QUADRANT PAIN (2) Liver mass Assessment/Plan: surgery is involved also oncology consult Code(s): R16.0 - HEPATOMEGALY, NOT ELSEWHERE CLASSIFIED (3) Mass of left lobe of liver Code(s): R16.0 - HEPATOMEGALY, NOT ELSEWHERE CLASSIFIED Assessment/Plan pt for egd and colonoscopy tumour markers pending
[2017-08-09] MEDS ORDERED: PEG 3350/NA SULF BICARB CL/KCL 4000 ML SOLN.RECON PO ONE (17:00)
--- NOTE | 2017-08-09 17:07 | PN ---
Progress Note (short form) - Note Progress Note: pt seen and examined Imaging reviewed. 's consult noted. He feels tired. GENERAL: The patient is awake, alert, and fully oriented, in no acute distress. Obese. HEAD: Normal with no signs of trauma.. NECK: Normal range of motion, supple without lymphadenopathy, JVD, or masses. LUNGS: Breath sounds equal, clear to auscultation bilaterally. No wheeze/ crackles. HEART: Regular rate and rhythm, normal S1 and S2 without murmur or rub. ABDOMEN: Tenderness to the left mid and lower quadrant, with some guarding but no rebound. Soft/nondistended. BS wnl. No palpable masses. No hepatosplenomegaly. EXTREMITIES: Normal range of motion, no edema. No clubbing or cyanosis. No cords, erythema, or tenderness. Last Vital Signs Temp Pulse Resp BP Pulse Ox 97.6 F 89 20 150/86 95 08/09/17 14:30 08/09/17 14:30 08/09/17 09:00 08/09/17 14:30 08/09/17 09:00 CBC, BMP 08/09/17 06:25 08/08/17 11:45 Current Medications Generic Name Dose Route Start Last Admin Trade Name Freq PRN Reason Stop Dose Admin Heparin Sodium (Porcine) 5,000 unit 08/07/17 22:00 08/09/17 11:12 Heparin - SQ 5,000 unit BID ROSITA Administration Sodium Chloride 1,000 mls @ 100 mls/hr 08/07/17 18:15 08/09/17 16:31 Normal Saline - IV 100 mls/hr ASDIR ROSITA Administration Morphine Sulfate 2 mg 08/09/17 11:46 08/09/17 11:52 Morphine Sulfate IVPUSH 2 mg Q4H PRN Administration PAIN 4-6 imaging suggestive of malignancy primary to be found tumor markers pending EGD/Colonosopy pending.
[2017-08-10 08:12] LABS: CARCINOEMBRYONIC ANTIGEN 1.4 ng/mL (0.0-4.7)
[2017-08-10] MEDS: HEPARIN NA (PORCINE) 5,000 UNITS/ML 1ML VIAL SQ SCH (09:03)
--- NOTE | 2017-08-10 09:09 | PN ---
Progress Note, Physician - Current Medication List Current Medications: Active Medications Heparin Sodium (Porcine) (Heparin -) 5,000 unit SQ BID [facility] Last Admin: 08/10/17 09:03 Dose: Not Given Sodium Chloride (Normal Saline -) 1,000 mls @ 100 mls/hr IV ASDIR [facility] Last Admin: 08/09/17 16:31 Dose: 100 mls/hr Morphine Sulfate (Morphine Sulfate) 2 mg IVPUSH Q4H PRN PRN Reason: PAIN 4-6 Last Admin: 08/09/17 11:52 Dose: 2 mg - Objective Vital Signs: Vital Signs Temperature 98.8 F 08/10/17 08:00 Pulse Rate 100 H 08/10/17 08:00 Respiratory Rate 20 08/10/17 08:00 Blood Pressure 146/89 08/10/17 08:00 O2 Sat by Pulse Oximetry (%) 96 08/10/17 08:00 Labs: CBC, BMP 08/09/17 06:25 08/08/17 11:45 INR, PTT INR 1.39 (0.82-1.09) H 08/09/17 06:25 Fibrinogen 598.0 mg/dL (238-498) H 08/09/17 06:25 Problem List - Problems (1) Mass of left lobe of liver Code(s): R16.0 - HEPATOMEGALY, NOT ELSEWHERE CLASSIFIED (2) Abdominal pain Code(s): R10.9 - UNSPECIFIED ABDOMINAL PAIN Qualifiers: Abdominal location: left lower quadrant Qualified Code(s): R10.32 - Left lower quadrant pain (3) Abdominal pain, left lower quadrant Code(s): R10.32 - LEFT LOWER QUADRANT PAIN (4) Loss of appetite Code(s): R63.0 - ANOREXIA (5) Dysphagia Code(s): R13.10 - DYSPHAGIA, UNSPECIFIED Qualifiers: Dysphagia type: unspecified Qualified Code(s): R13.10 - Dysphagia, unspecified Assessment/Plan Tumor markers, CEA and Ca19-9 are normal. Upper g.i. anfd esophageal imaging is normal. Upper and lower endocsopy is pending. 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 Complete g.i work up , possible needle biopsy , though the interventional radiologist has reservation , to aspirate a cystic neoplasm of liver. If work up is completed and no primary lesion found , consider transfer , to liver service , Dr. Mireles at [facility].
[2017-08-10] MEDS ORDERED: PROPOFOL 20 ML ONE ×2 (10:28)
--- NOTE | 2017-08-10 11:54 | PROC ---
Endoscopy Procedure Endoscopy procedure completed. Please see scanned procedure report. Erosive duodenitis, gastritis and 1 cm esophageal, non-bleeding, white-based w/ o stigmata uler were found. Biopsies taken. Significant, external compression of the gastric antrum noted. PPI po qid soft/liquid diet via small, frequent meals. Consider transfer to a tertiary center for liver mass management
--- NOTE | 2017-08-10 13:41 | PN ---
Progress Note (short form) - Note Progress Note: Findings and need for transfer were discussed with the patient, his and daughter Problem List - Problems (1) Abdominal pain, left lower quadrant Code(s): R10.32 - LEFT LOWER QUADRANT PAIN (2) Liver mass Code(s): R16.0 - HEPATOMEGALY, NOT ELSEWHERE CLASSIFIED
--- NOTE | 2017-08-10 15:24 | PN ---
Progress Note (short form) - Note Progress Note: pt seen and examined Imaging reviewed/labs reviewed/GI procedures noted/GI note reviewed Pt is asleep. family at bedside. GENERAL: The patient is asleep HEAD: Normal with no signs of trauma.. NECK: Normal range of motion, supple without lymphadenopathy, JVD, or masses. LUNGS: Breath sounds equal, clear to auscultation bilaterally. No wheeze/ crackles. HEART: Regular rate and rhythm, normal S1 and S2 without murmur or rub. ABDOMEN: Tenderness to the left mid and lower quadrant, with some guarding but no rebound. Soft/nondistended. BS wnl. No palpable masses. No hepatosplenomegaly. EXTREMITIES: Normal range of motion, no edema. No clubbing or cyanosis. No cords, erythema, or tenderness. Last Vital Signs Temp Pulse Resp BP Pulse Ox 97.6 F 89 20 150/86 95 08/09/17 14:30 08/09/17 14:30 08/09/17 09:00 08/09/17 14:30 08/09/17 09:00 CBC, BMP 08/09/17 06:25 08/08/17 11:45 Current Medications Generic Name Dose Route Start Last Admin Trade Name Freq PRN Reason Stop Dose Admin Heparin Sodium (Porcine) 5,000 unit 08/07/17 22:00 08/09/17 11:12 Heparin - SQ 5,000 unit BID ROSITA Administration Sodium Chloride 1,000 mls @ 100 mls/hr 08/07/17 18:15 08/09/17 16:31 Normal Saline - IV 100 mls/hr ASDIR ROSITA Administration Morphine Sulfate 2 mg 08/09/17 11:46 08/09/17 11:52 Morphine Sulfate IVPUSH 2 mg Q4H PRN Administration PAIN 4-6 imaging suggestive of malignancy primary to be found tumor markers wnl EGD/Colonoscopy reviewed d/w , to talk to Liver service at [facility] due to the cystic nature and the feasibility of biopsy. d/w family on Monday and Today. RN aware.
[2017-08-10 15:37] VITALS: BP 155/93; PULSE 101; TEMP 98.6
--- NOTE | 2017-08-10 16:27 | CONSULT ---
Consult - Past Surgical History Past Surgical History: Yes: None - Alcohol/Substance Use Hx Alcohol Use: No - Smoking History Smoking history: Former smoker Have you smoked in the past 12 months: No Home Medications - Allergies Allergies/Adverse Reactions: Allergies Allergy/AdvReac Type Severity Reaction Status Date / Time No Known Allergies Allergy Verified 08/07/17 07:28 - Home Medications Home Medications: Ambulatory Orders Heparin - 5,000 unit SQ BID vial 08/10/17 Physical Exam Vital Signs: Vital Signs Temperature 98.6 F 08/10/17 15:31 Pulse Rate 101 H 08/10/17 15:31 Respiratory Rate 20 08/10/17 15:31 Blood Pressure 155/93 08/10/17 15:31 O2 Sat by Pulse Oximetry (%) 97 08/10/17 11:40 Labs: CBC, BMP 08/09/17 06:25 08/08/17 11:45 Problem List - Problems (1) Mass of left lobe of liver Code(s): R16.0 - HEPATOMEGALY, NOT ELSEWHERE CLASSIFIED (2) Abdominal pain Code(s): R10.9 - UNSPECIFIED ABDOMINAL PAIN Qualifiers: Abdominal location: left lower quadrant Qualified Code(s): R10.32 - Left lower quadrant pain (3) Abdominal pain, left lower quadrant Code(s): R10.32 - LEFT LOWER QUADRANT PAIN (4) Loss of appetite Code(s): R63.0 - ANOREXIA (5) Dysphagia Code(s): R13.10 - DYSPHAGIA, UNSPECIFIED Qualifiers: Dysphagia type: unspecified Qualified Code(s): R13.10 - Dysphagia, unspecified Assessment/Plan Endoscopy findings noted. Patient will be transferred to [facility] division. I have discussed with Dt. Mireles , about the patient. [facility] patient is aware.
--- NOTE | 2017-08-10 16:30 | DS ---
Physical Examination Vital Signs: Vital Signs Temperature 98.6 F 08/10/17 15:31 Pulse Rate 101 H 08/10/17 15:31 Respiratory Rate 20 08/10/17 15:31 Blood Pressure 155/93 08/10/17 15:31 O2 Sat by Pulse Oximetry (%) 97 08/10/17 11:40 Constitutional: Yes: No Distress HENT: Yes: Atraumatic Neck: Yes: Supple Cardiovascular: Yes: Regular Rate and Rhythm Respiratory: Yes: CTA Bilaterally Gastrointestinal: Yes: Normal Bowel Sounds Extremities: Yes: WNL Edema: LLE: Trace, RLE: Trace Neurological: Yes: Alert, Oriented Labs: CBC, BMP 08/09/17 06:25 08/08/17 11:45 Discharge Summary Reason For Visit: LIVER MASS Current Active Problems Abdominal pain (Acute) Abdominal pain, left lower quadrant (Acute) Dysphagia (Acute) Liver mass (Acute) Loss of appetite (Acute) Mass of left lobe of liver (Acute) Condition: Fair - Instructions - Home Medications Comprehensive Discharge Medication List: Ambulatory Orders Heparin - 5,000 unit SQ BID vial 08/10/17 pt being transferred to [facility] for further work up dr greene and dr motley spoke to in detail Myself and Dr Hi called and left [facility] for to call back meanwhile paperwork has been completed, pt consented to transfer
[2017-08-10] MEDS: SODIUM CHLORIDE 1,000 ML IV SCH (17:36)
--- NOTE | 2017-08-14 16:35 | PATH ---
Surgical Pathology Report Patient Name: ASAD CHAN [facility]. Rec. #: [id number] /Age/Gender: 1940 (Age: 77) / M Account: [id number] Location: [address] [place] [address]/[facility] Taken: 08/10/2017 Received: 08/11/2017 Reported: 08/14/2017 Physicians: Boris Rosales M.D. Specimen(s) Received A: BX DUODENAL BULB B: BX GASTRIC BODY C: BX GE JUNCTION Clinical History Preoperative diagnosis: None given Postoperative diagnosis: Duodenitis, gastritis, esophagitis Final Diagnosis A. DUODENAL BULB, BIOPSY: DUODENAL MUCOSA WITH MODERATE CHRONIC DUODENITIS AND MARQUEZ'S GLAND HYPERPLASIA. B. STOMACH, BODY, BIOPSY: GASTRIC BODY MUCOSA WITH MODERATE CHRONIC GASTRITIS. IMMUNOHISTOCHEMICAL STAIN FOR H. PYLORI IS NEGATIVE. C. GASTROESOPHAGEAL (GE) JUNCTION, BIOPSY: SQUAMOUS MUCOSA WITH MARKED ACUTE ESOPHAGITIS AND ULCERATION. PAS STAIN HIGHLIGHTS RARE FUNGAL HYPHAE MORPHOLOGICALLY CONSISTENT WITH LEIDY SPECIES. NO COLUMNAR COMPONENT IDENTIFIED. Electronically Signed Rita Hammonds M.D. Gross Description A. Received in formalin, labeled "biopsy duodenal bulb" are 3 bazan, irregular portions of soft tissue ranging from 0.2-0.5 cm. in greatest dimension. The specimens are submitted in toto in one cassette. B. Received in formalin, labeled "biopsy gastric body" are 2 bazan, irregular portions of soft tissue measuring 0.2 and 0.3 cm. in greatest dimension. The specimens are submitted in toto in one cassette. C. Received in formalin, labeled "biopsy GE junction" are 4 bazan, irregular portions of soft tissue ranging from 0.1-0.4 cm. in greatest dimension. The specimens are submitted in toto in one cassette. /08/11/2017 saudi08/11/2017
== END 2017-08-10 19:19 | disposition short-term general hospital (02) | DRG 436 ==
LOC: JER 07:12 → JERBED 12:08 → J6S 16:01
PROVIDERS: ADMIT Internal Medicine; ATTEND Internal Medicine
PROC: 0DD68ZX Extraction of Stomach, Via Natural or Artificial Opening Endoscopic, Diagnostic (ICD-10-PCS; 2017-08-10)
PROC: 0DD58ZX Extraction of Esophagus, Via Natural or Artificial Opening Endoscopic, Diagnostic (ICD-10-PCS; 2017-08-10)
PROC: 0DD98ZX Extraction of Duodenum, Via Natural or Artificial Opening Endoscopic, Diagnostic (ICD-10-PCS; principal; 2017-08-10 10:00)
DX: D37.6 Neoplasm of uncertain behavior of liver, gallbladder and bile ducts (principal); K22.10 Ulcer of esophagus without bleeding; R16.0 Hepatomegaly, not elsewhere classified; R10.32 Left lower quadrant pain; R13.10 Dysphagia, unspecified; R63.0 Anorexia; Z68.35 Body mass index [BMI] 35.0-35.9, adult; Z87.891 Personal history of nicotine dependence; K29.80 Duodenitis without bleeding; K76.89 Other specified diseases of liver
CPT/HCPCS: 36415; 71045-TC-FY; 74176-TC; 74178-TC; 74220-TC-FY; 80048; 80053; 82105; 82248; 82378; 82550; 82962; 83605; 83690; 83735; 84484; 85025; 85384; 85610; 85730; 86301; 86850; 86900; 86901; 88305-TC; 93005; 93010; 99284-25; J1644; J7030